=== PATIENT | male | born 1985 | race African-American/Black ===

== ENCOUNTER 2019-09-04 23:26 | Emergency (ER) | payer SELFPAY ==
[~2019-09-04] VITALS: Ht 172.7 cm; Wt 67.7 kg
[2019-09-04 23:29] VITALS: BP 136/96
--- NOTE | 2019-09-04 23:38 | NUR ---
Patient presents to ER /co left side mouth pain with possible abscess and right side buttock pain. Patient states he sat down on a heroin needle and fell and hit left side of jaw. C/o left side mouth pain. Denies fevers. Also c/o SOB since today. Patient is in NAD. Respirations even and unlabored. Patient denies drug use.
--- NOTE | 2019-09-04 23:39 | NUR ---
THIS TECH TRIAGED PT
[2019-09-04] MEDS ORDERED: ACETAMINOPHEN 500 MG TABLET ONE (23:59)
[2019-09-05] MEDS ORDERED: ACETAMINOPHEN 500 MG TABLET PO ONE
[2019-09-05] MEDS ORDERED: CLINDAMYCIN 300 MG CAPSULE PO ONE
[2019-09-05] MEDS ORDERED: CLINDAMYCIN 300 MG CAPSULE ONE (00:02)
[2019-09-05] MEDS ORDERED: PLEASE ENTER ALLERGIES MC SCH (00:30)
== END 2019-09-05 00:15 | disposition home or self-care (01) ==
LOC: ED 09-05 00:08
DX: K02.9 Dental caries, unspecified (principal); W46.1XXA Contact with contaminated hypodermic needle, initial encounter
CPT/HCPCS: 99283